=== PATIENT | male | born 1980 | race Caucasian/White ===

== ENCOUNTER → 2016-11-16 | Outpatient (CLI) | payer OTHER ==
--- NOTE | 2016-11-17 08:25 | RAD ---
Testicular ultrasound 11/16/2016 at 1643 hours Indication: Scrotal burning Comparison: None available Technique: Sonographic imaging of the testes was performed utilizing malloy scale, color Doppler and spectral waveform. Findings: The right testicle measures 5.2 x 3.1 x 3.8 cm. The left testicle measures 4.8 x 3.3 x 3.3 cm. Testicles are homogenous in echotexture without focal mass. There is mild hyperemia involving the epididymides and testicles. Arterial and venous spectral wave form are present. Trace fluid around the testes appears physiologic. A left epididymal cyst is present measuring 7 x 6 x 6 mm. No varicocele is identified. Impression: Mild hyperemia involving the testicles and epididymides suggestive of epididymoorchitis. Testes are perfused at the time of imaging.
== END | disposition home or self-care (01) ==
LOC: US 14:43
PROVIDERS: ATTEND Physician Assistant
DX: N50.89 Other specified disorders of the male genital organs (principal); N45.1 Epididymitis; R60.0 Localized edema
CPT/HCPCS: 76870

== ENCOUNTER → 2017-10-15 | Outpatient (CLI) | payer OTHER ==
[2017-10-18 13:09] LABS: TESTOSTERONE FREE 16.78 ng/dL (5.00-21.00); TESTOSTERONE TOTAL 565 ng/dL (264-916)
== END | disposition home or self-care (01) ==
LOC: LAB 14:29
PROVIDERS: ATTEND Urology
DX: R68.82 Decreased libido (principal)
CPT/HCPCS: 36415; 84402; 84403

== ENCOUNTER 2020-11-16 14:07 | Emergency (ER) | payer OTHER ==
[~2020-11-16] VITALS: Ht 188 cm; Wt 90.0 kg
[2020-11-16 14:07] VITALS: BP 155/98
--- NOTE | 2020-11-16 14:27 | PHYS DOC ---
General Adult EDM: Chief Complaint: LACERATION/AVULSION HPI: HPI: Patient is a 40-year-old male who presents to the ER today for a laceration to his dorsal aspect of his right thumb that occurred after he cut himself with a saw just prior to arrival. Patient reports mild pain to the thumb he rates it 1 out of 10, no radiation of pain, worse with movement, no treatment prior to arrival. Reports that his last tetanus shot was 4 years ago. Patient denies any decreased sensation to his finger, inability to move finger. Review of Systems: Review of Systems: 14 body systems of the review of systems have been reviewed. See HPI for pertinent positive and negative responses, otherwise all other systems are negative, nonpertinent or noncontributory Allergies: Allergies: Allergies Coded Allergies Type Severity Reaction Last Updated Verified No Known Drug Allergies 11/16/20 No Physical Exam: PE: Constitutional: Well developed, well nourished, no acute distress, non-toxic appearance. [] HENT: Normocephalic, atraumatic Eyes: PERRL, conjunctiva normal, no discharge. [] Neck: Normal range of motion, no stridor Cardiovascular: Normal peripheral perfusion Lungs & Thorax: Normal work of breathing, no tachypnea Skin: Warm, dry, no erythema, no rash. Patient has 1.5 cm laceration to the dorsal aspect of his right thumb with active bleeding, laceration appears to extend to the bone. Right thumb: Good range of motion, neurologically intact [] Back: Normal range of motion Extremities: No tenderness, no cyanosis, no clubbing, ROM intact, no edema. [] Neurologic: Alert and oriented X 3, normal motor function, normal sensory function, no focal deficits noted. [] Psychologic: Affect normal, judgement normal, mood normal. [] EKG: EKG: [] Radiology/Procedures: Radiology/Procedures: PROCEDURE: FINGER(S) RIGHT Exam: Right finger 3 views INDICATION: Laceration TECHNIQUE: Frontal view of the right hand with oblique and lateral views of the first digit Comparisons: None FINDINGS: Bone mineralization is normal. No acute or healed fractures. Soft tissue irregularity at the dorsal soft tissues. Joint spaces are well-maintained IMPRESSION: Likely small laceration overlying the proximal phalanx of the first digit without underlying osseous abnormality or radiopaque foreign body identified. Electronically signed by: Patric Mofftet MD (11/16/2020 4:28 PM) [facility] DICTATED AND SIGNED BY: PATRIC MOFFETT MD DATE: 11/16/201626 CC: ARIC VELIZ APRN; PCP,NO ~MTH0 0 Heart Score: C/O Chest Pain: No Risk Factors: Risk Factors: DM, Current or recent (<one month) smoker, HTN, HLP, family history of CAD, obesity. Risk Scores: Score 0 - 3: 2.5% MACE over next 6 weeks - Discharge Home Score 4 - 6: 20.3% MACE over next 6 weeks - Admit for Clinical Observation Score 7 - 10: 72.7% MACE over next 6 weeks - Early Invasive Strategies Course & Med Decision Making: Course & Med Decision Making Pertinent Labs and Imaging studies reviewed. (See chart for details) Patient is a 40-year-old male being seen in the ER today for a laceration to his right thumb. An x-ray was performed due to the depth of the laceration and to rule out any foreign bodies. X-ray is negative for any fractures and/or foreign bodies. Spoke with hand surgery, they would like to see him in office this next week. Patient was given follow-up information.. Laceration closed with 5.0 Ethilon, 3 sutures placed. Patient tolerated procedure. Patient given education regarding laceration care and suture removal. I discussed with patient all findings and diagnostic testing as well as the need to follow-up with PCP for further evaluation and treatment or return to the ER if any new or worsening symptoms. Strict return precautions were also discussed at length. Patient voiced understanding and agreement with the plan. Patient is hemodynamically stable at the time of disposition. Dragon Disclaimer: Dragon Disclaimer: This electronic medical record was generated, in whole or in part, using a voice recognition dictation system. Laceration Repair Lac Repair Time:1705 Confirmed: Patient, procedure, site, and site correct Consent: Patient has given verbal consent Laceration location: right thumb Shape:zigzag shaped Depth: invlving subq Details: Clean with no foreign material Neurovascular, tendon exam: Intact Anesthesia: 1% lido without epi Preparation: Sterile field established Irrigation: Wound irrigated with sterile saline/ betadine prep Debridement: Skin closure: Simple interrupted sutures placed Size of suture:5.0 Number of sutures:3 Complexity: Single layer Post procedure exam: Circulation, motor, sensory exam intact, bleeding con trolled. Complications: None Patient tolerated: Well Performed by: self Total time: 18 Departure Departure: Impression: Primary Impression: Laceration Disposition: HOME / SELF CARE / HOMELESS Condition: GOOD Referrals: PCP,NO (PCP) Patient Instructions: Laceration Care, Adult Additional Instructions: You were seen in the ER today for a laceration. This was repaired with 3 sutures and a aluminum finger splint was placed. Please keep laceration clean and dry. Do not submerge your hand in any water. Please monitor for any signs of infection such as redness, warmth, drainage, swelling, increased pain. You also need to have sutures removed in 7 to 10 days. You can take Tylenol or ibuprofen for pain. You can return to the ER if you follow-up with your primary care provider or in urgent care. You need to follow-up with [facility] within the next week. Please call this number on Wednesday to get an appointment. It is necessary that you follow-up with them as soon as possible so that you do not have any loss of range of motion of your thumb. If at any point you develop worsening of your pain, signs of infection as stated previously, decreased range of motion of your finger, or decreased sensation of your finger please return to the ER immediately. EMERGENCY DEPARTMENT GENERAL DISCHARGE INSTRUCTIONS Thank you for coming to [facility] (ED) today and trusting us with you care. We trust that you had a positivie experience in our Emergency Department. If you wish to speak to the department management, you may call the director at [phone]. YOUR FOLLOW UP INSTRUCTIONS ARE FOLLOWS: 1. Do you have a private Doctor? If you do not have a private doctor, please ask for a resource list of physicians or clinics that may be able to assist you with follow up care. 2. The Emergency Physician has interpreted your x-rays. The X-Ray specialist will also review them. If there is a change in the findings, you will be notified in 48 hours when at all possible. 3. A lab test or culture has been done, your results will be reviewed and you will be notified if you need a change in treatment. ADDITIONAL INSTRUCTIONS AND INFORMATION: 1. Your care today has been supervised by a physician who is specially trained in emergency care. Many problems require more than one evaluation for a complete diagnosis and treatment. We recommend that you schedule your follow up appointment as recommended to ensure complete treatment of you illness or injury. If you are unable to obtain follow up care and continue to have a problem, or if your condition worsens, we recommend that you return to the ED. 2. We are not able to safely determine your condition over the phone nor are we able to give sound medical advice over the phone. For these safety reasons, if you call for medical advice we will ask you to come to the ED for further evaluation. 3. If you have any questions regarding these discharge instructions please call the ED at [phone]. SAFETY INFORMATION: In the interest of safety, wellness, and injury prevention; we encourage you to wear your sealbelt, if you smoke; quite smoking, and we encourage family to use a protective helmet for bicycling and other sporting events that present an increased risk for head injury. IF YOUR SYMPTOMS WORSEN OR NEW SYMPTOMS DEVELOP, OR YOU HAVE CONCERNS ABOUT YOUR CONDITION; OR IF YOUR CONDITION WORSENS WHILE YOU ARE WAITING FOR YOUR FOLLOW UP APPOINTMENT; EITHER CONTACT YOUR PRIMARY CARE DOCTOR, THE PHYSICIAN WHOSE NAME AND NUMBER YOU WERE GIVEN, OR RETURN TO THE ED IMMEDIATELY. Scripts Sulfamethoxazole/Trimethoprim (BACTRIM DS TABLET) 1 Each Tablet 1 TAB PO BID for finger laceration for 5 Days, #10 TAB 0 Refills Prov: ARIC VELIZ APRN 11/16/20 Cephalexin (CEPHALEXIN) 500 Mg Tablet 1 TAB PO QID for finger laceration for 5 Days, #20 TAB 0 Refills Prov: ARIC VELIZ APRN 11/16/20 ARIC VELIZ APRN Nov 16, 2020 14:27
[2020-11-16] MEDS ORDERED: LIDOCAINE 1% Multi-Dose 20 ML VIAL. IJ ONE (15:45)
--- NOTE | 2020-11-16 16:30 | RAD ---
Exam: Right finger 3 views INDICATION: Laceration TECHNIQUE: Frontal view of the right hand with oblique and lateral views of the first digit Comparisons: None FINDINGS: Bone mineralization is normal. No acute or healed fractures. Soft tissue irregularity at the dorsal s oft tissues. Joint spaces are well-maintained IMPRESSION: Likely small laceration overlying the proximal phalanx of the first digit without underlying osseous abnormality or radiopaque foreign body identified. Electronically signed by: Eliot Brice MD (11/16/2020 4:28 PM) [facility]
[2020-11-16] MEDS ORDERED: CEPH500T PO (17:40)
[2020-11-16] MEDS ORDERED: SULF1TAB24 PO (17:40)
== END 2020-11-16 17:33 | disposition home or self-care (01) ==
LOC: ER 14:07
DX: S61.011A Laceration without foreign body of right thumb without damage to nail, initial encounter (principal); W26.8XXA Contact with other sharp object(s), not elsewhere classified, initial encounter; Y93.89 Activity, other specified; Y92.89 Other specified places as the place of occurrence of the external cause; Y99.8 Other external cause status
CPT/HCPCS: 12001; 73140; 99283-25